=== PATIENT | male | born 1970 | race Caucasian/White ===

== ENCOUNTER 2017-10-28 20:37 | Emergency (ER) | payer SELFPAY, OTHER | END 2017-10-28 23:13 | disposition home or self-care (01) | LOC: E/R 20:37 | DX: R06.00 Dyspnea, unspecified (principal); F41.9 Anxiety disorder, unspecified; R40.2142 Coma scale, eyes open, spontaneous, at arrival to emergency department; R40.2252 Coma scale, best verbal response, oriented, at arrival to emergency department; R40.2362 Coma scale, best motor response, obeys commands, at arrival to emergency department | CPT/HCPCS: 71045; 93005; 99284-25 ==